=== PATIENT | female | born 1995 | race Caucasian/White ===

== ENCOUNTER 2016-07-02 00:23 | Emergency (ER) | payer OTHER ==
[~2016-07-02] VITALS: Ht 172.7 cm; Wt 59.0 kg
[~2016-07-02 00:23] MED LIST: DOCU-27 PO; FAMO20TA5 PO; HYDR-2666 PO; LEVO50TA5 PO; METO10TA81 PO; NITR0.4T SL; ONDA4TAB10 SL; OXYC-323 PO; OXYC1TAB7 PO; SYNTHROID PO
[2016-07-02] MEDS ORDERED: IV NORMAL SALINE 1000ML BAG 1,000 ML IV ONE ×2 (01:45→03:30)
[2016-07-02 01:57] LABS: BILIRUBIN,URINE NEGATIVE (NEG); GLUCOSE,URINE NEGATIVE (NEG); NITRITE,URINE NEGATIVE (NEG); PH,URINE 6.5; PROTEIN,URINE NEGATIVE (NEG-TRACE); UROBILINOGEN,URINE 0.2 mg/dL (0.2 mg/dL)
[2016-07-02] MEDS ORDERED: ONDANSETRON PF 4 MG/2 ML VIAL. IV ONE (02:00)
[2016-07-02] MEDS ORDERED: KETOROLAC TROMETHAMINE 30 MG/ML SYRINGE. IV ONE (02:00)
[2016-07-02 02:08] LABS: BASO % 1 % (0-3); EOS % 0 % (0-3); HEMATOCRIT 35.9 % (36.0-47.0); HEMOGLOBIN 11.5 g/dL (12.0-15.5); LYMPH # 0.7 x10^3/uL (1.0-4.8); LYMPH % 11 % (24-48); MEAN CORPUSCULAR HEMOGLOBIN 27 pg (25-35); MEAN CORPUSCULAR HGB CONC 32 g/dL (31-37); MEAN CORPUSCULAR VOLUME 83 fL (79-100); MONO % 9 % (0-9); NEUT % 79 % (31-73); PLATELET COUNT 337 x10^3/uL (140-400); RED CELL DISTRIBUTION WIDTH 16.4 % (11.5-14.5); WHITE BLOOD COUNT 6.4 x10^3/uL (4.0-11.0)
[2016-07-02 02:11] LABS: OBC FLU VALID
[2016-07-02 02:15] LABS: BACTERIA,URINE 0 /HPF (0-FEW); RBC,URINE OCC /HPF (0-2); WBC,URINE OCC /HPF (0-4)
[2016-07-02 02:16] LABS: SQUAMOUS EPITHELIAL CELL,UR FEW /LPF
[2016-07-02 02:18] LABS: CALCIUM 8.9 mg/dL (8.5-10.1); CREATININE 0.8 mg/dL (0.6-1.0); GFR 89.7; POTASSIUM 3.8 mmol/L (3.5-5.1)
[2016-07-02] MEDS ORDERED: OSEL75CA PO (03:37)
[2016-07-02] MEDS ORDERED: IBUP-1007 PO (03:37)
[2016-07-02] MEDS ORDERED: ONDA4TAB7 PO (03:37)
--- NOTE | 2016-07-02 03:37 | PHYS DOC ---
Past Medical History Past Medical History: Anemia, Hypothyroid, Other Additional Past Medical Histor: preeclampsia Past Surgical History: Tonsillectomy, Other Additional Past Surgical Histo: knee surgery,MYOTOMY FOR ACHALASIA X 2, LT FOOT Alcohol Use: Occasionally Drug Use: None, Cocaine, Other Social History Narrative: SOBER FROM COCAINE AT THIS TIME Adult General Chief Complaint Chief Complaint: FEVER HPI HPI 21-year-old female who is otherwise healthy is had ongoing generalized malaise today with fever, chills, nausea and vomiting with some cough as well. She does have generalized myalgias as well. She denies any dysuria or hematuria. She denies any abdominal pain. She denies any chest pain or shortness of breath. Review of Systems Review of Systems Constitutional: Has fever, has chills [] Eyes: Denies change in visual acuity, redness, or eye pain [] HENT: Denies nasal congestion or sore throat [] Respiratory: Has cough, denies shortness of breath [] Cardiovascular: No additional information not addressed in HPI [] GI: Denies abdominal pain, has nausea, has vomiting, denies bloody stools, denies diarrhea [] : Denies dysuria or hematuria [] Musculoskeletal: Denies back pain or joint pain [] Integument: Denies rash or skin lesions [] Neurologic: Denies headache, focal weakness or sensory changes [] Endocrine: Denies polyuria or polydipsia [] Current Medications Current Medications Current Medications Medications (Trade) Dose Ordered Sig/Jed Start Time Stop Time Status Last Admin Dose Admin Ketorolac Tromethamine (Toradol) 30 mg 1X ONCE 07/02/16 02:00 07/02/16 02:01 DC 07/02/16 02:05 30 MG Ondansetron HCl (Zofran) 4 mg 1X ONCE 07/02/16 02:00 07/02/16 02:01 DC 07/02/16 02:04 4 MG Oseltamivir Phosphate 75 mg 75 mg DAILY 07/02/16 09:00 07/07/16 08:59 Sodium Chloride (Iv Sodium Chloride 0.9% 1000ml Bag) 1,000 ml @ 1,000 mls/hr 1X ONCE 07/02/16 03:30 07/02/16 04:29 07/02/16 03:30 1,000 MLS/HR Allergies Allergies Allergies Coded Allergies Type Severity Reaction Last Updated Verified No Known Drug Allergies 08/16/15 No Physical Exam Physical Exam Constitutional: Well developed, well nourished, no acute distress, non-toxic appearance. [] HENT: Normocephalic, atraumatic, bilateral external ears normal, oropharynx moist, no oral exudates, nose normal. [] Eyes: PERRLA, EOMI, conjunctiva normal, no discharge. [] Neck: Normal range of motion, no tenderness, supple, no stridor. [] Cardiovascular:Heart rate regular rhythm, no murmur [] Lungs & Thorax: Bilateral breath sounds clear to auscultation [] Abdomen: Bowel sounds normal, soft, no tenderness, no masses, no pulsatile masses. [] Skin: Warm, dry, no erythema, no rash. [] Back: No tenderness, no CVA tenderness. [] Extremities: No tenderness, no cyanosis, no clubbing, ROM intact, no edema. [] Neurologic: Alert and oriented X 3, normal motor function, normal sensory function, no focal deficits noted. [] Psychologic: Affect normal, judgement normal, mood normal. [] Current Patient Data Vital Signs Vital Signs Date Time Temp Pulse Resp B/P Pulse Ox O2 Delivery O2 Flow Rate FiO2 07/02/16 00:44 98.2 119 18 133/78 96 Room Air 98.2 Lab Values Laboratory Tests Test 07/02/16 01:37 07/02/16 01:41 07/02/16 01:47 07/02/16 02:00 Influenza Type A Antigen Positive (NEGATIVE) Influenza Type B Antigen Negative (NEGATIVE) Urine Collection Type Unknown Urine Color Yellow Urine Clarity Clear Urine pH 6.5 Urine Specific [place] 1.010 Urine Protein Negativemg/dL (NEG-TRACE) Urine Glucose (UA) Negativemg/dL (NEG) Urine Ketones (Stick) Negativemg/dL (NEG) Urine Blood Negative (NEG) Urine Nitrite Negative (NEG) Urine Bilirubin Negative (NEG) Urine Urobilinogen Dipstick 0.2mg/dL (0.2 mg/dL) Urine Leukocyte Esterase Negative (NEG) Urine RBC Occ/HPF (0-2) Urine WBC Occ/HPF (0-4) Urine Squamous Epithelial Cells Few/LPF Urine Bacteria 0/HPF (0-FEW) Urine Mucus Slight/LPF POC Urine HCG, Qualitative Hcg negative (Negative) White Blood Count 6.4x10^3/uL (4.0-11.0) Red Blood Count 4.30x10^6/uL (3.50-5.40) Hemoglobin 11.5g/dL (12.0-15.5) L Hematocrit 35.9% (36.0-47.0) L Mean Corpuscular Volume 83fL (79-100) Mean Corpuscular Hemoglobin 27pg (25-35) Mean Corpuscular Hemoglobin Concent 32g/dL (31-37) Red Cell Distribution Width 16.4% (11.5-14.5) H Platelet Count 337x10^3/uL (140-400) Neutrophils (%) (Auto) 79% (31-73) H Lymphocytes (%) (Auto) 11% (24-48) L Monocytes (%) (Auto) 9% (0-9) Eosinophils (%) (Auto) 0% (0-3) Basophils (%) (Auto) 1% (0-3) Neutrophils # (Auto) 5.0x10^3uL (1.8-7.7) Lymphocytes # (Auto) 0.7x10^3/uL (1.0-4.8) L Monocytes # (Auto) 0.6x10^3/uL (0.0-1.1) Eosinophils # (Auto) 0.0x10^3/uL (0.0-0.7) Basophils # (Auto) 0.0x10^3/uL (0.0-0.2) Sodium Level 137mmol/L (136-145) Potassium Level 3.8mmol/L (3.5-5.1) Chloride Level 102mmol/L (98-107) Carbon Dioxide Level 28mmol/L (21-32) Anion Gap 7 (6-14) Blood Urea Nitrogen 6mg/dL (7-20) L Creatinine 0.8mg/dL (0.6-1.0) Estimated GFR (Cockcroft-Gault) 89.7 Glucose Level 101mg/dL (70-99) H Calcium Level 8.9mg/dL (8.5-10.1) Laboratory Tests 07/02/16 02:00 Laboratory Tests 07/02/16 02:00 EKG EKG [] Radiology/Procedures Radiology/Procedures Portable 1 view her chest as interpreted by me does not reveal an acute cardiopulmonary process. Course & Med Decision Making Course & Med Decision Making Pertinent Labs and Imaging studies reviewed. (See chart for details) This 21-year-old female with positive influenza A will be given a dose of Tamiflu in the department. Patient was given 2 L of IV normal saline, IV Toradol , IV Zofran and had laboratory workup drawn. Her laboratory workup is unrevealing. Her portable view her chest is also nonrevealing. Her tachycardia upon arrival is fully resolved after 2 L normal saline. I'll be discharging her home with a course of Zofran and Tamiflu with strict instruction to remain well- hydrated at home and to follow closely with her primary care doctor next several days. Dragon Disclaimer Dragon Disclaimer This electronic medical record was generated, in whole or in part, using a voice recognition dictation system. Departure Departure Impression: Primary Impression: Influenza A (H1N1) Disposition: HOME, SELF-CARE Admitting Physician: Other Condition: STABLE Referrals: NO PCP (PCP) Patient Instructions: Influenza A (H1N1) Additional Instructions: Please follow up with your primary doctor in the next 2-3 days and take your medications as prescribed. Return to the ER if you develop any worsening of your symptoms. Scripts Ibuprofen 600 Mg [id number] Mg PO PRN Q6HRS PRN INFLAMMATION #20 TAB Prov:BALTAZAR SAM DO 07/02/16 Oseltamivir Phosphate (Tamiflu)75 Mg Capsule1 Cap PO BID #9 CAP Prov:BALTAZAR SAM DO 07/02/16 Ondansetron Hcl (Zofran)4 Mg Tablet4 Mg PO BID PRN NAUSEA/VOMITING #10 TAB Prov:BALTAZAR SAM DO 07/02/16 BALTAZAR SAM DO Jul 02, 2016 03:37
[2016-07-02] MEDS ORDERED: OSELTAMIVIR 75 MG CAPSULE PO ONE (04:15)
[2016-07-02 04:32] VITALS: BP 112/68
[2016-07-02 07:57] LABS: NEGATIVE OBC STREP NEG; POSITIVE OBC STREP POS
--- NOTE | 2016-07-02 07:59 | RAD ---
Portable chest, 07/02/2016: History: Shortness of breath Comparison is made to a study from 08/17/2015. The heart size and pulmonary vascularity are normal. The lungs are clear. There is no evidence of pleural fluid. A minimal thoracic scoliosis is noted. IMPRESSION: No acute cardiopulmonary abnormality is detected.
== END 2016-07-02 04:40 | disposition home or self-care (01) ==
LOC: ER 00:23
DX: J10.1 Influenza due to other identified influenza virus with other respiratory manifestations (principal); E03.9 Hypothyroidism, unspecified; F14.10 Cocaine abuse, uncomplicated; Z90.89 Acquired absence of other organs
CPT/HCPCS: 36415; 71010; 80048; 81001; 81025; 85027; 87070; 87804; 87880; 96361; 96374; 96375; 99285; J1885; J2405; J7030

== ENCOUNTER 2017-09-27 17:38 | Emergency (ER) | payer OTHER ==
[2017-09-27 18:26] LABS: URINE HCG POC HCG NEGATIVE (Negative)
[2017-09-27 19:07] LABS: ADD MAN DIFF? NO
[2017-09-27 19:09] LABS: BASO % 0 % (0-3); EOS # 0.2 x10^3/uL (0.0-0.7); EOS % 3 % (0-3); HEMATOCRIT 35.7 % (36.0-47.0); HEMOGLOBIN 11.9 g/dL (12.0-15.5); LYMPH # 2.2 x10^3/uL (1.0-4.8); LYMPH % 29 % (24-48); MEAN CORPUSCULAR HEMOGLOBIN 29 pg (25-35); MEAN CORPUSCULAR HGB CONC 33 g/dL (31-37); MEAN CORPUSCULAR VOLUME 87 fL (79-100); MONO # 0.5 x10^3/uL (0.0-1.1); MONO % 6 % (0-9); NEUT # 4.6 x10^3uL (1.8-7.7); NEUT % 62 % (31-73); PLATELET COUNT 356 x10^3/uL (140-400); RED BLOOD COUNT 4.11 x10^6/uL (3.50-5.40); RED CELL DISTRIBUTION WIDTH 17.4 % (11.5-14.5); WHITE BLOOD COUNT 7.4 x10^3/uL (4.0-11.0)
[2017-09-27 19:11] LABS: BILIRUBIN,URINE NEGATIVE (NEG); CLARITY,URINE CLEAR; COLOR,URINE YELLOW; GLUCOSE,URINE NEGATIVE (NEG); NITRITE,URINE NEGATIVE (NEG); PROTEIN,URINE NEGATIVE (NEG-TRACE); UROBILINOGEN,URINE 0.2 mg/dL (0.2 mg/dL)
[2017-09-27 19:32] LABS: ANION GAP 10 (6-14); BLOOD UREA NITROGEN 11 mg/dL (7-20); BUN/CREATININE RATIO 14 (6-20); CALCIUM 8.7 mg/dL (8.5-10.1); CARBON DIOXIDE 28 mmol/L (21-32); CHLORIDE 101 mmol/L (98-107); CREATININE 0.8 mg/dL (0.6-1.0); GFR 88.9; GLUCOSE 86 mg/dL (70-99); SODIUM 139 mmol/L (136-145)
[2017-09-27] MEDS: IV NORMAL SALINE 1000ML BAG 1,000 ML IV (19:32)
[2017-09-27] MEDS: FAMOTIDINE 20 MG/2 ML VIAL IVP (19:32)
[2017-09-27] MEDS: ONDANSETRON PF 4 MG/2 ML VIAL. IV (19:32)
[2017-09-27 19:38] LABS: ALBUMIN 3.9 g/dL (3.4-5.0); ALBUMIN/GLOBULIN RATIO 0.9 (1.0-1.7); ALK PHOS 74 U/L (46-116); ALT (SGPT) 20 U/L (14-59); AST (SGOT) 15 U/L (15-37); LIPASE 195 U/L (73-393); TOTAL BILIRUBIN 0.3 mg/dL (0.2-1.0); TOTAL PROTEIN 8.4 g/dL (6.4-8.2)
[2017-09-27 19:41] LABS: TROPONINI < 0.017 ng/mL (0.000-0.055)
[2017-09-27 19:43] LABS: BACTERIA,URINE 0 /HPF (0-FEW); RBC,URINE 0 /HPF (0-2); SQUAMOUS EPITHELIAL CELL,UR OCC /LPF; WBC,URINE OCC /HPF (0-4)
== END 2017-09-27 21:14 | disposition home or self-care (01) ==
LOC: ER 17:38
DX: R10.13 Epigastric pain (principal); K59.00 Constipation, unspecified; R11.2 Nausea with vomiting, unspecified; J02.9 Acute pharyngitis, unspecified; R07.89 Other chest pain; E03.9 Hypothyroidism, unspecified
CPT/HCPCS: 36415; 74022; 80053; 81001; 81025; 83690; 84484; 85025; 93005; 96361; 96374; 96375; 99285-25; J2405; J7030; S0028